=== PATIENT | female | born 1995 | race Caucasian/White ===

== ENCOUNTER 2019-05-15 20:36 | Emergency (ER) | payer MEDICAID, SELFPAY ==
[2019-05-15 20:44] VITALS: BP 143/98; PULSE 108; RESP 18; TEMP 36.6; O2SAT 99
--- NOTE | 2019-05-15 21:05 | DI.CT_ITS ---
SYMPTOM/DIAGNOSIS: TRAUMA, DIFFUSE BACK PAIN, LUQ PAIN CT CHEST, ABDOMEN AND PELVIS: Images were performed from clavicles through the ischial tuberosities after IV and without oral contrast. The heart and great vessels appear intact. There are no pleural or pericardial effusions or evidence of pneumothorax. No infiltrates are seen. No spine or rib fractures are identified. IMPRESSION: Negative chest CT CT ABDOMEN AND PELVIS: No spine or pelvic fractures are seen. There is no free air or free fluid. The liver shows fatty infiltration. The gallbladder, spleen, pancreas, adrenals and kidneys appear normal. There is some dehiscence of the rectus abdominis. There is a tiny fatty containing umbilical hernia. There is no bowel dilatation, free air or free fluid. An IUD is noted in the uterus. The ovaries are unremarkable. The bladder is nearly empty but appears intact. IMPRESSION: Negative CT chest, abdomen and pelvis.
--- NOTE | 2019-05-15 21:39 | ED.GENADUL_ITS ---
Discharge Plan Disposition Patient Disposition: HOME Condition: Improving Discharge Details Chief Complaint: Trauma Clinical Impression: Back pain due to injury, Abdominal pain due to injury Primary Care Provider: Loli Mckeon ED Provider: Silviano Schmitz Home Meds and New Rx's Prescriptions: New diclofenac potassium 50 mg tablet 50 mg PO TID PRN (Reason: pain) Qty: 10 RF: 0 No Action Mirena 20 mcg/24 hours (5 yrs) 52 mg Intrauterine Device INTRAUTERINE RF: 0 Discharge Instructions Instructions: Abdominal Pain (ED), Back Pain (ED) Additional Instructions: Return to the emergency department for any new or significant worsening of symptoms otherwise slowly advance her activity as tolerated by pain and disco mfort. If not improving over the next week please follow-up with your primary care provider for reassessment. Referrals: Loli Mckeon [Primary Care Provider] - (As needed for reassessment) Discharge Data Discharge Date/Time-TO BE ENTERED AT DEPARTURE: 05/15/19 23:47 Medical Decision Making Patient presenting the emergency department for chief complaint of back pain and abdominal pain. Patient reports yesterday she fell down a flight of stairs backwards and then when she went to sit up the couch she was attempting to carry with a friend was Let go and struck her in the abdomen. Since then she has had worsening pain, states episode of standing up and near syncope, nausea, and some retching due to pain. Patient states she has taken Tylenol and Motrin with no relief. Physical exam shows diffuse back pain without step-off deformity or ecchymosis noted, clear lung sounds, normal cardiac exam, abdomen with slight tenderness in the left upper quadrant otherwise soft no guarding. Given significant trauma and patient presenting 24 hours later with significant increase in pain I do feel that CT imaging is warranted. Neurological exam is on remarkable as I do not feel that head imaging is needed or warranted and patient denies any head injury. Patient is not so patient given ketorolac pending results. Review of labs shows a nonspecific leukocytosis, unremarkable CMP, and CT imaging shows no acute findings. Patient was reassessed and stated improvement after receiving ketorolac. Patient placed up on diclofenac and close return precautions were discussed. After discussion of diagnosis and plan of care patient has no further needs, questions, or concerns and states clear understanding to return to the emergency department for any worsening symptoms. HPI General Mode of arrival: ambulatory . Date/Time Provider Initiated Documentation: 05/15/19 20:54 . Limitations to Documentation: no limitations . Information obtained by: patient and RN notes reviewed . History of Present Illness 23 year old F presents to the emergency department with the chief complaint of Back pain, abdominal pain, trauma, described as moderate, with intensity rated at 8. Quality is described as sharp, and is localized to the back and abdomen. Patient started experiencing this day(s) (1) and it has been constant. No relieving factors improve symptom(s), Movement worsens symptoms . Patient notes no other symptoms.. Patient did receive the following treatments prior to arrival, NSAID Related Data Home Medications Medication Instructions Recorded Confirmed diclofenac potassium 50 mg PO TID PRN #10 tab 05/15/19 levonorgestrel [Mirena] INTRAUTERINE 05/15/19 Previous Rx's Medication Instructions Recorded diclofenac potassium 50 mg PO TID PRN #10 tab 05/15/19 Allergies Allergy/AdvReac Type Severity Reaction Status Date / Time latex Allergy Unverified 05/15/19 20:49 control pills AdvReac Mild Itching Uncoded 05/15/19 20:49 General Stated Complaint: Trauma KATIE: 3 Review of Systems Constitutional Denies fever(s) and Reports headache(s) ENT Reports headache(s) Cardiovascular Denies chest pain and Denies dyspnea Respiratory Denies cough, Reports pain on inspiration and Denies dyspnea Gastrointestinal Reports as per HPI, Reports abdominal pain, Denies melena, Denies change in bowel habits, Denies constipation, Denies diarrhea, Reports nausea and Reports vomiting Genitourinary Denies hematuria Musculoskeletal Reports back pain, Denies numbness, Reports stiffness and Denies tingling Integumentary/Breasts Denies rash Neurologic Reports headache(s), Denies memory loss, Denies numbness and Denies tingling Psychiatric Denies memory loss [facility] Medical History No acute medical problems (Acute) Social History Smoking/Tobacco Use Status: Current every day Tobacco Type: cigarettes Alcohol Intake: never Substance use type: does not use Do you feel safe at home: Yes Exam Const General: cooperative Orientation: alert, awake and oriented x3 Resp Effort & Inspection: normal respiratory effort and able to speak in complete sentences Auscultation: clear to auscultation bilaterally Cardio Rate: regular rate Rhythm: regular rhythm Heart Sounds: S1 normal and S2 normal GI Palpation: soft, no hepatosplenomegaly, not firm, no guarding, no masses, no pulsatile masses, not rigid, no splenomegaly and tender Auscultation: normal bowel sounds Back/Spine/Pelvis Thoracic/Lumbar Spine: paraspinal tenderness, thoracic spinal tenderness and lumbar spinal tenderness Neuro General: alert, awake, oriented x3, gait normal, tone normal, moves all extremities, normal light touch, pain and propioception, no focal motor deficits, CN's II-XI intact bilaterally and not confused Course Vital Signs Temperature 36.6 C 05/15/19 20:44 Pulse 108 H 05/15/19 20:44 Respiratory Rate 18 05/15/19 20:44 Blood Pressure 143/98 H 05/15/19 20:44 Pulse Oximetry 99 05/15/19 20:44 Temperature 36.6 C 05/15/19 20:44 Temperature Source Skin 05/15/19 20:44 Pulse 108 H 05/15/19 20:44 Respiratory Rate 18 05/15/19 20:44 Blood Pressure 143/98 H 05/15/19 20:44 Blood Pressure Position Sitting 05/15/19 20:44 Pulse Oximetry 99 05/15/19 20:44 Oxygen Delivery Method Room Air 05/15/19 20:44 Oxygen Flow Rate 0 05/15/19 20:44 Pain Level 8 05/15/19 20:44 Lab/Test Results Lab/Test Results: POC- Test(urine) Negative
[2019-05-15] MEDS: Ketorolac 30 MG/ML VIAL IVP (22:01)
[2019-05-15] MEDS: Ondansetron 4 MG/2 ML VIAL IVP (22:01)
[2019-05-15] MEDS: Omnipaque 350 MG/ML 100 ML BTL IJ (22:14)
[2019-05-15 22:15] LABS: Abs Immature Grans 0.06 k/cumm (0.0-0.09); Absolute Basophil Count 0.01 k/cumm (0.0-0.2); Absolute Eosinophil Count 0.24 k/cumm (0.0-0.7); Absolute Monocyte Count 0.79 k/cumm (0.11-0.7); Absolute Neutrophil Count 8.51 k/cumm (1.2-6.7); Basophils % 0.1; Eosinophils % 1.7; HCT 42.7 % (36.0-46.0); HGB 14.2 g/dL (12.0-15.5); Immature Grans % 0.4; Lymphocytes % 30.9; Mean Corp. HGB Concentration 33.3 g/dL (32.0-36.0); Mean Corpuscular Volume 96.2 fL (80-95); Mean Platelet Volume 10.7 fL (8.0-11.0); Monocytes % 5.7; Neutrophils % 61.2; Platelet Count 271 x1000/uL (130-400); RBC 4.44 m/cumm (4.00-5.20); RBC Distribution Width 13.2 % (11.7-14.6)
[2019-05-15] MEDS: Normal Saline 1,000 ML 1000 ML IV (22:19)
[2019-05-15 22:34] LABS: ALT 41 U/L (14-59); AST 25 U/L (15-37); Albumin 4.1 g/dL (3.4-5.0); Alkaline Phosphatase 65 U/L (46-116); Anion Gap 11.5 mmol/L (3-11); BUN 15 mg/dL (7-18); Bilirubin, Total 0.4 mg/dL (0.2-1.0); CO2 25.5 mmol/L (21.0-32.0); CREATININE 0.94 mg/dL (0.55-1.02); Chloride 103 mmol/L (98-107); Glucose 78 mg/dL (70-100); Lipase 122 U/L (73-393); Sodium 140 mmol/L (136-145); Total Protein 8.2 g/dL (6.4-8.2)
[2019-05-15 22:47] VITALS: BP 102/55; PULSE 88; RESP 16; O2SAT 99
--- NOTE | 2019-05-15 22:48 | DI.VRAD_ITS ---
EXAM: CT Chest With Contrast EXAM DATE/TIME: 05/15/2019 9:09 PM CLINICAL HISTORY: 23 years old, female; Injury or trauma; Fall; Initial encounter; Generalized; Blunt trauma (contusions or hematomas); Injury date: 05/14/2019; Injury details: Fell down stairs while helping to carry a couch. Landed supine, couch landed across the chest TECHNIQUE: Imaging protocol: Computed tomography of the chest with intravenous contrast. Radiation optimization: All CT scans at this facility use at least one of these dose optimization techniques: automated exposure control; mA and/or kV adjustment per patient size (includes targeted exams where dose is matched to clinical indication); or iterative reconstruction. COMPARISON: No relevant prior studies available. FINDINGS: Lungs: No consolidation. No masses. Pleural space: No pneumothorax. No pleural effusion. Heart: No cardiomegaly. No pericardial effusion. Aorta: No aortic aneurysm. Lymph nodes: Unremarkable. No enlarged lymph nodes. Bones/joints: Unremarkable. No acute fracture. Soft tissues: Unremarkable. IMPRESSION: No acute findings. EXAM: CT Abdomen and Pelvis With Contrast EXAM DATE/TIME: 05/15/2019 9:09 PM CLINICAL HISTORY: 23 years old, female; Injury or trauma; Fall; Initial encounter; Generalized; Blunt trauma (contusions or hematomas); Injury date: 05/14/2019; Injury details: Fell down stairs while helping to carry a couch. Landed supine, couch landed across the chest TECHNIQUE: Imaging protocol: Computed tomography of the abdomen and pelvis with intravenous contrast. Radiation optimization: All CT scans at this facility use at least one of these dose optimization techniques: automated exposure control; mA and/or kV adjustment per patient size (includes targeted exams where dose is matched to clinical indication); or iterative reconstruction. Contrast material: [id number]; Contrast volume: 100 ml; Contrast route: IV RT HAND 20G; COMPARISON: No relevant prior studies available. FINDINGS: Liver: Unremarkable. No mass. Gallbladder and bile ducts: No calcified stones. No ductal dilation. Pancreas: Unremarkable. No ductal dilation. Spleen: Unremarkable. No splenomegaly. Adrenals: Unremarkable. No mass. Kidneys and ureters: Unremarkable. No hydronephrosis. Stomach and bowel: Unremarkable. No obstruction. No mucosal thickening. Appendix: No evidence of appendicitis. Intraperitoneal space: No free air. No significant fluid collection. Vasculature: No abdominal aortic aneurysm. Lymph nodes: No enlarged lymph nodes. Bladder: Unremarkable as visualized. Reproductive: IUD in place. Bones/joints: No acute fracture. No dislocation. Soft tissues: Unremarkable. IMPRESSION: No acute findings. Dictated and Authenticated by: Bro Veloz MD. Ordering:PAUL Shore MD
[2019-05-15 23:48] VITALS: BP 112/76; PULSE 92; RESP 16; TEMP 36.6; O2SAT 98
== END 2019-05-15 23:47 | disposition home or self-care (01) ==
PROVIDERS: Emergency Provider Nurse Practitioner Family; PCP Nurse Practitioner Family
DX: M54.9 Dorsalgia, unspecified (principal); R10.9 Unspecified abdominal pain; W10.8XXA Fall (on) (from) other stairs and steps, initial encounter
CPT/HCPCS: 36415; 74177; 80053; 81025; 83690; 96361; 96374; 96375; 99285; 71260; 85025; 99284

== ENCOUNTER 2019-10-21 15:12 | Outpatient (REF) | payer MEDICAID, SELFPAY ==
--- NOTE | 2019-10-21 13:45 | PAPFT_PTH ---
PATIENT: Terri Dick LOC: [facility] U#:[id number] AGE/SX: 24/F ROOM: RE10/21/[address]: Loli Mckeon : 1995 BED: DIS: 10/21/2019 SPEC #: [id number] RECD: 10/21/19 17:54 STATUS: MANOHAR REQ #: [id number] STEVEN: 10/21/19 13:[address]: Loli Mckeon [facility]PT[facility] Cytology RECD BY: Elyse Pickens Tissues: 1 - CX/ENDOCX FOR PAP SMEARS Procedures: PAP THIN PREP/[facility] Screening Comments: [id number]
[2019-10-21 19:52] LABS: HCT 43.7 % (36.0-46.0); HGB 14.3 g/dL (12.0-15.5); Mean Corp. HGB Concentration 32.7 g/dL (32.0-36.0); Mean Corpuscular Hemoglobin 31.4 pg (27.0-33.0); Mean Corpuscular Volume 95.8 fL (80-95); Platelet Count 240 x1000/uL (130-400); RBC 4.56 m/cumm (4.00-5.20); RBC Distribution Width 13.3 % (11.7-14.6); White Blood Cell Count 14.71 k/cumm (4.4-10.8)
[2019-10-21 20:02] LABS: Iron 46 ug/dL (50-170); Total Iron Binding Capacity 342 ug/dL (250-450); Transferrin Sat 13 % (15-50)
[2019-10-21 20:12] LABS: ALT 34 U/L (14-59); AST 18 U/L (15-37); Albumin 4.3 g/dL (3.4-5.0); Alkaline Phosphatase 76 U/L (46-116); Anion Gap 9.5 mmol/L (3-11); BUN 9 mg/dL (7-18); Bilirubin, Total 0.2 mg/dL (0.2-1.0); CO2 27.5 mmol/L (21.0-32.0); Chloride 102 mmol/L (98-107); Glucose 85 mg/dL (74-106); Sodium 139 mmol/L (136-145); TSH (W/Ref FT4) 1.08 uIU/mL (0.36-3.74); Total Protein 7.7 g/dL (6.4-8.2)
[2019-10-21 20:15] LABS: Bilirubin Negative (Negative); Blood Negative (Negative); Clarity Clear (Clear); Glucose Negative (Negative); Ketones Negative (Negative); Leukocyte Esterase Trace (Negative); Nitrite Negative (Negative); Specific Gravity 1.015 (1.005-1.025); Urobilinogen 0.2 EU/dL (Up TO 0.2)
[2019-10-21 21:11] LABS: Bacteria Rare HPF (Negative); Epithelial Cells Moderate HPF (Negative)
[2019-10-21 21:12] LABS: C & S Indicated? No/Sq. Contamination
[2019-10-23 10:51] LABS: HIV-1/2 Ag & Ab Screen Negative (Negative); Hepatitis C Ab w Rflx HCV PCR Negative (Negative)
[2019-10-23 15:18] LABS: Chlamydia Result Negative (Negative); GC Result Negative (Negative)
== END 2019-10-21 15:32 ==
LOC: NCHCN 15:12
PROVIDERS: PCP Nurse Practitioner Family; Visit Provider Nurse Practitioner Family
DX: R10.30 Lower abdominal pain, unspecified (principal); N89.8 Other specified noninflammatory disorders of vagina; Z20.2 Contact with and (suspected) exposure to infections with a predominantly sexual mode of transmission; Z11.3 Encounter for screening for infections with a predominantly sexual mode of transmission; Z11.59 Encounter for screening for other viral diseases; Z12.4 Encounter for screening for malignant neoplasm of cervix; Z11.4 Encounter for screening for human immunodeficiency virus [HIV]
CPT/HCPCS: 80053; 85027; 86803; 87389; 87491; 87591; 88142; 81003; 81015; 83540; 83550; 84443; 87480; 87510; 87660

== ENCOUNTER 2019-11-04 11:50 | Outpatient (REF) | payer MEDICAID, SELFPAY | END 2019-11-04 12:10 | LOC: NCHCN 11:50 | PROVIDERS: PCP Nurse Practitioner Family; Visit Provider Nurse Practitioner Family | DX: R69 Illness, unspecified (principal) | CPT/HCPCS: 81003 ==

== ENCOUNTER 2019-11-05 01:43 | Emergency (ER) | payer MEDICAID, SELFPAY ==
--- NOTE | 2019-11-05 01:43 | W.ED.GENAD ---
Discharge Plan Disposition Patient Disposition: HOME Condition: Improving Discharge Details Chief Complaint: GenMedical Clinical Impression: Dizziness, History of anxiety, Generalized pain Primary Care Provider: Loli Mckeon ED Provider: Sylvia Marinelli Home Meds and New Rx's Prescriptions: Continued Mirena 20 mcg/24 hours (5 yrs) 52 mg Intrauterine Device INTRAUTERINE RF: 0 diclofenac potassium 50 mg tablet 50 mg PO TID PRN (Reason: pain) Qty: 10 RF: 0 Discharge Instructions Instructions: Chest Pain (ED), Dizziness (ED) Additional Instructions: Drink plenty of fluids and get plenty of rest. Alternate tylenol and motrin as needed and directed for pain. Follow-up with your primary care doctor in 1 week. Return to the emergency department with any worsening or new concerning symptoms. Discharge Data Discharge Date/Time-TO BE ENTERED AT DEPARTURE: 11/05/19 03:25 Discharge Physician: Sylvia Marinelli Medical Decision Making 0150 -- 24-year-old female with a history of anxiety, bipolar disorder, PTSD, previous opioid abuse, anemia presents for episode of chest pain, dizziness and generalized weakness that occurred within the hour. EMS was called to the residence for possible anxiety versus seizure. Patient has no history of seizures and states she was awake during this entire episode and denies any jerking or seizure activity or LOC. She was awake and alert upon their arrival and was able to ambulate to the stretcher. She states she finished intercourse with her boyfriend when she stood up and went to the bathroom. Upon return she complained of anterior chest pain, dizziness and generalized weakness. She states she felt like she was frozen like in a coma and was unable to see or talk and this lasted approximately few minutes and then improved. She does currently admit to headache and intermittent chest pain and generalized weakness. She denies any drug or alcohol use. She states she does have a Mirena but that she also took a test today at home which was positive. She states she saw her PCP last week and was told she was possibly anemic and advised to start iron. Vitals within normal limits. Patient appears relaxed and comfortable and in no acute distress. She has a history of a murmur which is heard faintly on exam, 2/6. No focal deficits. Differential diagnosis includes dehydration, anxiety attack, anemia, electrolyte abnormality, arrhythmia. History and presentation not consistent with PE or seizure. PERC negative. Urine test negative. Will place an IV, bolus IV fluids, screening labs, urinalysis, UDS, chest x-ray and EKG. No focal deficits and do not see an indication for ct head. 0300 -- labs and imaging reviewed and unremarkable. Pt admitted to diffuse body pain and was given a dose of toradol and symptoms improved. Suspect possibly dehydration vs viral process. She is requesting to go home. Advised to follow up with the primary care doctor for re-evaluation. Usual and customary return precautions given prior to discharge. Medical Records Medical records reviewed: Yes I reviewed the patient's medical records. Imaging Data Radiologic Study: Radiologist's impression: XR Chest, 2 Views Exam date and time: 11/05/2019 2:31 AM Age: 24 years old Clinical indication: Other: Dizziness; Type not specified; Patient HX: Chest pain, dizzy, R/O acute disease TECHNIQUE: Imaging protocol: XR of the chest Views: 2 views. COMPARISON: No relevant prior studies available. FINDINGS: Lungs: The lungs are clear throughout with no mass or consolidation seen. Pleural space: Pleural margins are sharply defined and there is no pneumothorax or pleural effusion. Heart/Mediastinum: Heart size is normal and vessel margins are sharply defined. Bones/joints: Osseous structures appear grossly intact. IMPRESSION: No acute cardiopulmonary process. Lab Data Lab results reviewed: Yes I reviewed the patient's lab results. Labs: Laboratory Tests Range/Units 11/05/19 11/05/19 02:20 02:20 WBC (4.4-10.8) k/cumm 12.34 H RBC (4.00-5.20) m/cumm 4.30 Hgb (12.0-15.5) g/dL 13.6 Hct (36.0-46.0) % 40.7 MCV (80-95) fL 94.7 MCH (27.0-33.0) pg 31.6 MCHC (32.0-36.0) g/dL 33.4 RDW (11.7-14.6) % 13.2 Plt Count (130-400) x1000/uL 247 MPV (8.0-11.0) fL 11.1 H Immature Gran % % 0.2 Neutrophils % 53.3 Lymphocytes % 36.1 Monocytes % 7.3 Eosinophils % 2.9 Basophils % 0.2 Absolute Neutrophils (1.2-6.7) k/cumm 6.58 Absolute Lymphocytes (1.2-3.4) k/cumm 4.45 H Absolute Monocytes (0.11-0.7) k/cumm 0.90 H Absolute Eosinophils (0.0-0.7) k/cumm 0.36 Absolute Basophils (0.0-0.2) k/cumm 0.02 Sodium (136-145) mmol/L 141 Potassium (3.5-5.1) mmol/L 4.2 Chloride (98-107) mmol/L 105 Carbon Dioxide (21.0-32.0) mmol/L 24.9 Anion Gap (3-11) mmol/L 11.1 H BUN (7-18) mg/dL 10 Creatinine (0.55-1.02) mg/dL 0.72 Estimated GFR/1.73 m2 (mL/min/1.73m2) >= 60.00 Glucose (74-106) mg/dL 91 Calcium (8.5-10.1) mg/dL 9.3 Magnesium (1.8-2.4) mg/dL 2.0 Total Bilirubin (0.2-1.0) mg/dL 0.3 AST (15-37) U/L 30 ALT (14-59) U/L 41 Alkaline Phosphatase (46-116) U/L 61 Troponin I (<0.06) ng/Ml < 0.05 Total Protein (6.4-8.2) g/dL 7.2 Albumin (3.4-5.0) g/dL 4.0 ECG Data Attestation: I personally reviewed and interpreted this ECG (s) as follows: Interpretation: rate of 78, sinus, no acute ST elevation or depression. KS 154. QTc 417. QRS 94. HPI General Mode of arrival: EMS. Date/Time Provider Initiated Documentation: 11/05/19 01:44. Limitations to Documentation: no limitations. Information obtained by: patient and EMS. History of Present Illness 24 year old F presents to the emergency department with the chief complaint of chest pain, period of dizziness, weakness, Quality is described as aching, and is localized to the chest. Patient reports no radiation. Patient started experiencing this hour(s) (1) and it has been other (improved). No relieving factors improve symptom(s), No exacerbating factors reported . Patient notes chest pain, headaches and weakness; denies fever/chills, loss of appetite, malaise, nausea/vomiting, rash, seizure, shortness of breath and syncope. Patient did receive the following treatments prior to arrival, none Related Data Home Medications Medication Instructions Recorded Confirmed Mirena INTRAUTERINE 05/15/19 diclofenac potassium 50 mg PO TID PRN #10 tab 05/15/19 Previous Rx's Medication Instructions Recorded diclofenac potassium 50 mg PO TID PRN #10 tab 05/15/19 Allergies Allergy/AdvReac Type Severity Reaction Status Date / Time latex Allergy Unverified 05/15/19 20:49 control pills AdvReac Mild Itching Uncoded 05/15/19 20:49 General KATIE: 3 Review of Systems All systems reviewed & are unremarkable except as noted in HPI and below Constitutional Constitutional: Reports as per HPI, Denies chills and Denies fever(s) Eyes Eyes: Denies blurry vision ENT Ears, Nose, Mouth, and Throat: Reports dizziness, Denies sore throat and Denies throat swelling Cardiovascular Cardiovascular: Reports chest pain and Denies dyspnea Respiratory Respiratory: Denies cough and Denies dyspnea Gastrointestinal Gastrointestinal: Denies abdominal pain, Denies diarrhea and Denies vomiting Genitourinary Genitourinary: Denies hematuria and Denies dysuria Musculoskeletal Musculoskeletal: Denies back pain and Denies numbness Integumentary/Breasts Skin/Breast: Denies lesions and Denies rash Neurologic Neurologic: Reports dizziness, Denies focal weakness and Denies numbness Allergic/Immunologic Allergic/Immunologic: Denies throat swelling [facility] Medical History (Updated 11/05/19 @ 03:17 by Sylvia Marinelli DO) Anxiety (Chronic) Bipolar affective disorder (Acute) Opioid abuse (Acute) PTSD (post-traumatic stress disorder) (Acute) Social History Smoking/Tobacco Use Status: Current every day Tobacco Type: cigarettes Alcohol Intake: never Substance use type: does not use Do you feel safe at home: Yes Do you feel safe in your relationship?: Yes Exam Const General: cooperative and no acute distress Orientation: alert, awake and oriented x3 HENMT Head: normal to inspection Ears: hearing grossly normal bilaterally and external ears normal General nose exam: external nose normal Face and sinus: normal facial exam Mouth: oral mucosae normal Teeth and gingiva: dentition normal Throat: posterior oropharynx normal Eyes General: appearance normal, both eyes and all related structures Eyelids: eyelids normal Pupils: PERRL EOM: EOM intact bilaterally Neck Neck: normal visual inspection Lymphatic: no lymphadenopathy noted Chest Chest: normal inspection of the chest Resp Effort & Inspection: normal respiratory effort and able to speak in complete sentences Auscultation: clear to auscultation bilaterally Cardio Rate: regular rate Rhythm: regular rhythm GI Inspection: normal to inspection Palpation: soft, not firm, no guarding, no hepatosplenomegaly, no masses and nontender Auscultation: normal bowel sounds Skin General skin exam: no rashes or lesions noted Neuro General: alert, awake, oriented x3 and gait normal Cranial Nerves: CN's II-XI intact bilaterally Cognition: normal cognition Speech: speech normal Gait: normal gait Motor: muscle tone normal throughout and strength 5/5 throughout Sensory Exam: no sensory deficits noted Extrem General: normal to inspection, full ROM and normal capillary refill Psych Appearance: grossly normal Mental Status: mental status grossly normal Speech and Movement: speech and movement normal Affect: normal affect Thought Process: normal
[2019-11-05 01:49] VITALS: BP 133/78; PULSE 84; RESP 16; TEMP 36.2; O2SAT 98
[2019-11-05] MEDS: Normal Saline 1,000 ML 1000 ML IV (02:20)
[2019-11-05 02:24] VITALS: RESP 18
[2019-11-05 02:31] LABS: Abs Immature Grans 0.02 k/cumm (0.0-0.09); Absolute Eosinophil Count 0.36 k/cumm (0.0-0.7); Absolute Lymphocyte Count 4.45 k/cumm (1.2-3.4); Absolute Neutrophil Count 6.58 k/cumm (1.2-6.7); Basophils % 0.2; Eosinophils % 2.9; HCT 40.7 % (36.0-46.0); HGB 13.6 g/dL (12.0-15.5); Immature Grans % 0.2 %; Lymphocytes % 36.1; Mean Corp. HGB Concentration 33.4 g/dL (32.0-36.0); Mean Corpuscular Hemoglobin 31.6 pg (27.0-33.0); Mean Corpuscular Volume 94.7 fL (80-95); Mean Platelet Volume 11.1 fL (8.0-11.0); Monocytes % 7.3; Neutrophils % 53.3; Platelet Count 247 x1000/uL (130-400); RBC Distribution Width 13.2 % (11.7-14.6); White Blood Cell Count 12.34 k/cumm (4.4-10.8)
[2019-11-05 02:34] LABS: Absolute Basophil Count 0.02 k/cumm (0.0-0.2)
--- NOTE | 2019-11-05 02:35 | DI.RAD_ITS ---
EXAM: XR CHEST 2V PA LATERAL CLINICAL HISTORY: chest pain, dizzy, r/o acute disease. TECHNIQUE: 2D digital imaging was performed. COMPARISON: No exams were available for comparison FINDINGS: LUNGS: Clear. No pleural abnormality seen. HEART: Normal. MEDIASTINUM: Normal. OTHER FINDINGS:Normal. BONE:Normal. IMPRESSION: No acute pulmonary findings.
[2019-11-05 02:47] LABS: ALT 41 U/L (14-59); AST 30 U/L (15-37); Alkaline Phosphatase 61 U/L (46-116); Anion Gap 11.1 mmol/L (3-11); BUN 10 mg/dL (7-18); Bilirubin, Total 0.3 mg/dL (0.2-1.0); CO2 24.9 mmol/L (21.0-32.0); CREATININE 0.72 mg/dL (0.55-1.02); Calcium 9.3 mg/dL (8.5-10.1); Chloride 105 mmol/L (98-107); Glucose 91 mg/dL (74-106); Potassium 4.2 mmol/L (3.5-5.1); Sodium 141 mmol/L (136-145); Total Protein 7.2 g/dL (6.4-8.2); Troponin I < 0.05 ng/Ml (<0.06)
--- NOTE | 2019-11-05 02:49 | DI.VRAD_ITS ---
PROCEDURE INFORMATION: Exam: XR Chest, 2 Views Exam date and time: 11/05/2019 2:31 AM Age: 24 years old Clinical indication: Other: Dizziness; Type not specified; Patient HX: Chest pain, dizzy, R/O acute disease TECHNIQUE: Imaging protocol: XR of the chest Views: 2 views. COMPARISON: No relevant prior studies available. FINDINGS: Lungs: The lungs are clear throughout with no mass or consolidation seen. Pleural space: Pleural margins are sharply defined and there is no pneumothorax or pleural effusion. Heart/Mediastinum: Heart size is normal and vessel margins are sharply defined. Bones/joints: Osseous structures appear grossly intact. IMPRESSION: No acute cardiopulmonary process. Dictated and Authenticated by: Estrada Mchugh MD. Ordering:AYESHA Ward MD
[2019-11-05] MEDS: Ketorolac 30 MG/ML VIAL IVP (03:20)
[2019-11-05 03:25] VITALS: BP 123/70; PULSE 84; RESP 18; TEMP 36.6; O2SAT 98
== END 2019-11-05 03:25 | disposition home or self-care (01) ==
LOC: ER 03:31
PROVIDERS: Emergency Provider Physician Assistant; PCP Nurse Practitioner Family
DX: R42 Dizziness and giddiness (principal); F41.9 Anxiety disorder, unspecified; R53.1 Weakness; R52 Pain, unspecified; F31.9 Bipolar disorder, unspecified
CPT/HCPCS: 36415; 80053; 93005; 96361; 96374; 99285; 71046; 83735; 84484; 85025; 93010; J1885

== ENCOUNTER 2019-12-24 17:25 | Emergency (ER) | payer MEDICAID, SELFPAY ==
[2019-12-24 17:29] VITALS: BP 140/96; PULSE 87; RESP 14; TEMP 36.5; O2SAT 98
--- NOTE | 2019-12-24 17:43 | ED.GENADUL_ITS ---
Discharge Plan Disposition Patient Disposition: HOME Condition: Stable Discharge Details Chief Complaint: DentalOral Clinical Impression: Odontalgia Primary Care Provider: Loli Mckeon ED Provider: Jose Rodarte Home Meds and New Rx's Prescriptions: New penicillin V potassium 500 mg tablet 500 mg PO QID 10 Days Qty: 40 RF: 0 Continued Mirena 20 mcg/24 hours (5 yrs) 52 mg Intrauterine Device INTRAUTERINE RF: 0 No Action penicillin V potassium 500 mg tablet 500 mg PO BID RF: 0 Discharge Instructions Instructions: Toothache (ED) Additional Instructions: May use warm salt water gargles to decrease discomfort. Tylenol and/or ibuprofen as needed for pain. Please change your penicillin schedule to 500 mg by mouth 4 times daily for 10 days. Follow-up with dentistry as planned. He may also call the [facility] in [place] who has a large group of dentist. Their office number is [phone] Return to the ER for any acute concerns. Medical Decision Making 24-year-old female with poor dentition, numerous dental caries and broken teeth. Presents with day 3 of left mandibular facial swelling and tooth pain. No obvious focal point of fluctuance but she clearly is developing a recurrent dental infection. She was placed on twice daily penicillin yesterday by her primary care physician. Patient was consented and agreed to regional nerve block of the inferior alveolar nerve which I performed with a one-to-one mix of bupivacaine and lidocaine. I will increase her penicillin to 500 mg 4 times daily and she will continue with her plan to follow-up with dentistry. She understands homecare as well as return precautions. HPI General Mode of arrival: ambulatory . Date/Time Provider Initiated Documentation: 12/24/19 17:29 . Limitations to Documentation: no limitations . Information obtained by: patient . History of Present Illness 24 year old F presents to the emergency department with the chief complaint of Left facial swelling and dental pain, described as moderate and similar to prior episodes, Quality is described as constant, and is localized to the face and mouth. Patient reports no radiation. Patient started experiencing this day(s) and it has been constant. No relieving factors improve symptom(s), Eating worsens symptoms . Patient notes no other symptoms. and other (No change to voice or drooling); denies fever/chills. Patient did receive the following treatments prior to arrival, other (Started on penicillin yesterday per primary care twice daily for 10 days) Related Data Home Medications Medication Instructions Recorded Confirmed Mirena INTRAUTERINE 05/15/19 penicillin V potassium 500 mg PO BID 12/24/19 12/24/19 penicillin V potassium 500 mg PO QID 10 Days #40 tab 12/24/19 Previous Rx's Medication Instructions Recorded penicillin V potassium 500 mg PO QID 10 Days #40 tab 12/24/19 Allergies Allergy/AdvReac Type Severity Reaction Status Date / Time latex Allergy Unverified 12/24/19 17:32 control pills AdvReac Mild Itching Uncoded 12/24/19 17:32 General Stated Complaint: DentalOral KATIE: 4 Review of Systems Narrative: See HPI 6 systems reviewed and otherwise negative [facility] Medical History (Updated 12/24/19 @ 17:46 by Jose Rodarte MD) Anxiety (Chronic) Bipolar affective disorder (Acute) Opioid abuse (Acute) PTSD (post-traumatic stress disorder) (Acute) Social History Smoking/Tobacco Use Status: Current every day Tobacco Type: cigarettes Alcohol Intake: never Drug use: Daily Substance use type: marijuana Details: marijuana at HS Do you feel safe at home: Yes Do you feel safe in your relationship?: Yes Exam Narrative Exam Narrative: GEN: awake, alert, oriented 3. Pleasant, well groomed, interactive. HEAD: Normocephalic, atraumatic ENT: Mucous membranes moist, oropharynx with numerous dental caries and broken teeth. There is mild tenderness to the left mandibular buccal aspect without pointing fluctuance. External ear exam unremarkable EYES: PERRL, EOMI NECK: Full ROM, no GENARO, no menigismus EXT: Full ROM, no edema, no rash Neuro: Grossly normal neurologic exam, conversant, interactive. Psych: Speech fluent, thoughts congruent, affect normal Course Vital Signs Vital signs: Vital Signs Temperature 36.5 C 12/24/19 17:29 Pulse 87 12/24/19 17:29 Respiratory Rate 14 12/24/19 17:29 Blood Pressure 140/96 H 12/24/19 17:29 Pulse Oximetry 98 12/24/19 17:29 Temperature 36.5 C 12/24/19 17:29 Temperature Source Skin 12/24/19 17:29 Pulse 87 12/24/19 17:29 Respiratory Rate 14 12/24/19 17:29 Respiratory Effort 12/24/19 17:33 Blood Pressure 140/96 H 12/24/19 17:29 Blood Pressure Position Sitting 12/24/19 17:29 Pulse Oximetry 98 12/24/19 17:29 Oxygen Delivery Method Room Air 12/24/19 17:29 Oxygen Flow Rate 0 12/24/19 17:29 Pain Level 10 12/24/19 17:33 Comment 12/24/19 17:29 Procedures Nerve Block Nerve Block 1: Time out performed: Yes Local Anesthetic: Lidocaine 1% and Bupivicaine 0.25% Intraoral Nerve Block: inferior alveolar Procedure Successful: Yes Patient Tolerated Procedure: well
[2019-12-24] MEDS: Bupivacaine 0.5% Pres-Free 30 ML VIAL IJ (18:03)
== END 2019-12-24 18:10 | disposition home or self-care (01) ==
PROVIDERS: Emergency Provider Emergency Medicine; PCP Nurse Practitioner Family
DX: R68.84 Jaw pain; K02.9 Dental caries, unspecified
CPT/HCPCS: 64450; 99283

== ENCOUNTER 2020-01-14 16:53 | Emergency (ER) | payer MEDICAID, SELFPAY ==
[2020-01-14 16:58] VITALS: BP 128/90; PULSE 93; RESP 18; TEMP 36.5; O2SAT 95
--- NOTE | 2020-01-14 17:02 | ED.GENADUL_ITS ---
Discharge Plan Disposition Patient Disposition: HOME Condition: Good Discharge Details Chief Complaint: RashLesion Clinical Impression: Skin irritation Primary Care Provider: Loli Mckeon ED Provider: Elgin Gastelum Home Meds and New Rx's Prescriptions: No Action Mirena 20 mcg/24 hours (5 yrs) 52 mg Intrauterine Device INTRAUTERINE RF: 0 Discharge Instructions Instructions: Cellulitis (DC) Additional Instructions: At this time you have mild irritation of your skin likely initially from scratching, and there is no very mild infection in this area. It does not need any oral antibiotics. Please apply either triple antibiotic ointment/neomycin ointment/bacitracin ointment to the affected lesions, place a Band-Aid over these so that they healed and that there is no more scratching. If you notice spreading of the redness, discharge or worsening of your symptoms please return immediately for reassessment. If you notice any worsening of your symptoms, or any new symptoms such as vomiting, diarrhea, fever, chills, shortness of breath, chest pain, numbness, weakness, or fainting , please return immediately to the emergency department for reevaluation. Please follow up with your primary care provider as soon as possible for reassessment and reevaluation. As always, it was a pleasure participating in your medical care today. Referrals: oLli Mckeon [Primary Care Provider] - Discharge Data Discharge Date/Time-TO BE ENTERED AT DEPARTURE: 01/14/20 17:05 Medical Decision Making 24-year-old female with no significant past medical history who presents today for evaluation of 2 lesions. Patient states that few days ago she developed mild what she thought was a bite angi on her right neck and left hip. She did some significant scratching shortly after that and then developed mild redness after that. She states that the areas are slightly tender, she denies any discharge, fever chills or other complaints. She denies any new pets, she does have a rabbit. She denies history of bedbugs or fleas. She has no other complaints at this time. She denies history of shingles or herpes. No other modifying factors. Physical exam demonstrates 2 small lesions, one on her neck and one on her hip. Both lesions appear to have very minimal cellulitis, no evidence of abscess or other abnormality, no current clinical indication for oral antibiotic therapy. Recommend that the patient stop scratching the areas, and apply triple antibiotic ointment. Discussed red flags for which to return. I have extensively reviewed the treatment plan and discharge instructions with the patient. I have addressed all patient concerns at this time. The patient was made aware of what symptoms to monitor for that would warrant a return to the emergency department. Discussed the plan with the patient, they demonstrate verbal understanding and agreement with our assessment and plan at this time. HPI General Date/Time Provider Initiated Documentation: 01/14/20 16:54 . HPI Narrative: 24-year-old female with no significant past medical history who presents today for evaluation of 2 lesions. Patient states that few days ago she developed mild what she thought was a bite angi on her right neck and left hip. She did some significant scratching shortly after that and then developed mild redness after that. She states that the areas are slightly tender, she denies any discharge, fever chills or other complaints. She denies any new pets, she does have a rabbit. She denies history of bedbugs or fleas. She has no other complaints at this time. She denies history of shingles or herpes. No other modifying factors. Related Data Home Medications Medication Instructions Recorded Confirmed Mirena INTRAUTERINE 05/15/19 Allergies Allergy/AdvReac Type Severity Reaction Status Date / Time latex Allergy Unverified 12/24/19 17:32 control pills AdvReac Mild Itching Uncoded 12/24/19 17:32 General Stated Complaint: RashLesion KATIE: 5 Review of Systems All systems reviewed & are unremarkable except as noted in HPI and below [facility] Medical History (Updated 01/14/20 @ 17:04 by Elgin Gastelum DO) Anxiety (Chronic) Bipolar affective disorder (Acute) Opioid abuse (Acute) PTSD (post-traumatic stress disorder) (Acute) Social History Smoking/Tobacco Use Status: Current every day Tobacco Type: cigarettes Alcohol Intake: never Drug use: Daily Substance use type: marijuana Details: marijuana at HS Do you feel safe at home: Yes Do you feel safe in your relationship?: Yes Exam Narrative Exam Narrative: 1.Const: Well-nourished, Well-developed, appearing stated age 2.Eyes: PERRL, no conjunctival injection, and symmetrical lids. 3.ENT: Atraumatic external nose and ears. Moist MM. Neck: Symmetric, trachea midline, No thyromegaly. 4.CVS: +S1/S2, No murmurs or gallops. Peripheral pulses 2+ and equal in all extremities. Brisk capillary refill in all extremities. 5.RESP: Unlabored respiratory effort. Clear to auscultation bilaterally. No wheezes rales or rhonchi 6.GI: Soft, Nontender/Nondistended, No hepatosplenomegaly. No guarding or rebound. 7.MSK: Normocephalic/Atraumatic, Extremities w/o deformity or ttp No cyanosis or clubbing, Normal movement of all extremities 8.Skin: Warm, Dry. Patient has small erythematous lesion with mild excoriations over her right neck, no abscess, swelling, or drainage. No pustules. Patient's left hip also demonstrates a small lesion and similar appearance. Diameter is roughly 2 cm. Width is 1 cm. Negative Nikolsky sign. No large vesicles or bulla. No palpable purpura. No oral lesions. No mucosal lesions. No evidence of severe cellulitis. No evidence of vaccine preventable rash. 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 Sensation grossly intact, no focal neurologic deficits. 10.Psych: (AAO) x3. Appropriate mood and affect Course Vital Signs Vital signs: Vital Signs Temperature 36.5 C 01/14/20 16:58 Pulse 93 H 01/14/20 16:58 Respiratory Rate 18 01/14/20 16:58 Blood Pressure 128/90 01/14/20 16:58 Pulse Oximetry 95 01/14/20 16:58 Temperature 36.5 C 01/14/20 16:58 Temperature Source Skin 01/14/20 16:58 Pulse 93 H 01/14/20 16:58 Respiratory Rate 18 01/14/20 16:58 Blood Pressure 128/90 01/14/20 16:58 Blood Pressure Position Sitting 01/14/20 16:58 Pulse Oximetry 95 01/14/20 16:58 Oxygen Delivery Method Room Air 01/14/20 16:58 Oxygen Flow Rate 0 01/14/20 16:58
== END 2020-01-14 17:05 | disposition home or self-care (01) ==
PROVIDERS: Emergency Provider Student in an Organized Health Care Education/Training Program; PCP Nurse Practitioner Family
DX: R21 Rash and other nonspecific skin eruption (principal)
CPT/HCPCS: 99282

== ENCOUNTER 2020-04-15 19:55 | Emergency (ER) | payer MEDICAID, SELFPAY ==
[2020-04-15 19:59] VITALS: BP 121/67; PULSE 85; RESP 18; TEMP 37; O2SAT 99
--- NOTE | 2020-04-15 20:23 | W.ED.GENAD ---
Discharge Plan Disposition Patient Disposition: HOME Condition: Good Discharge Details Chief Complaint: DentalOral Clinical Impression: Pain, dental Primary Care Provider: Loli Mckeon ED Provider: Elgin Gastelum Home Meds and New Rx's Prescriptions: Continued Mirena 20 mcg/24 hours (5 yrs) 52 mg Intrauterine Device INTRAUTERINE RF: 0 Discharge Instructions Instructions: Toothache (ED) Additional Instructions: At this time please continue your antibiotic that you are prescribed by your dentist. Take 800 mg of ibuprofen every 6 hours and 1000 mg of Tylenol every 6 hours. If you need something extra for the breakthrough pain you can take 1 Gordon pill every 6 hours, but I would recommend trying to avoid this if at all possible. If you do take the Gordon pill only take 500 mg of Tylenol instead of 1000 as Gordon does have a small amount of Tylenol in it. Continue to ice your jaw as often as possible. Follow-up closely with your dentist. If you notice any worsening of your symptoms, or any new symptoms such as vomiting, diarrhea, fever, chills, shortness of breath, chest pain, numbness, weakness, or fainting , please return immediately to the emergency department for reevaluation. Please follow up with your primary care provider as soon as possible for reassessment and reevaluation. As always, it was a pleasure participating in your medical care today. Referrals: Loli Mckeon [Primary Care Provider] - Medical Decision Making 24-year-old female who presents today for evaluation of dental pain. The patient had all but 6 teeth pulled 2 days ago. She was given an antibiotic which she suspects is amoxicillin, recommended Tylenol Motrin and a few Gordon's. Unfortunately she finished her narcotic pills today and still has notable pain. She states that she contacted her PCP, they recommended that she come in here for further evaluation. Exam demonstrates a nearly edentulous oropharynx, no signs of significant swelling edema or discharge. With the notable amount of teeth that were removed I see it is no surprise that she has notable pain that she does. We will maximize her Tylenol and Motrin dosing, I did discuss risks and benefits of narcotics. Through shared decision making process we will give 4 Gordon pills for home use. Recommend close follow-up with PCP. As well as dentist. With no signs of infection, evidence of trauma, or drainage, I see no other further and medical indication for treatment. Patient will be discharged home. Discussed red flags which to return. I have extensively reviewed the treatment plan and discharge instructions with the patient. I have addressed all patient concerns at this time. The patient was made aware of what symptoms to monitor for that would warrant a return to the emergency department. Discussed the plan with the patient, they demonstrate verbal understanding and agreement with our assessment and plan at this time. HPI General Date/Time Provider Initiated Documentation: 04/15/20 20:12. HPI Narrative: 24-year-old female who presents today for evaluation of dental pain. The patient had all but 6 teeth pulled 2 days ago. She was given an antibiotic which she suspects is amoxicillin, recommended Tylenol Motrin and a few Gordon's. Unfortunately she finished her narcotic pills today and still has notable pain. She states that she contacted her PCP, they recommended that she come in here for further evaluation. She currently denies any fever chills chest pain shortness of breath numbness tingling or weakness. No other complaints at this time. She is intermittently taking Tylenol Motrin, usually at lower doses of 600 mg for ibuprofen and 500 mg for Tylenol. No other complaints at this time. No other modifying factors. Related Data Home Medications Medication Instructions Recorded Confirmed Mirena INTRAUTERINE 05/15/19 Allergies Allergy/AdvReac Type Severity Reaction Status Date / Time latex Allergy Unverified 04/15/20 20:03 control pills AdvReac Mild Itching Uncoded 04/15/20 20:03 General Stated Complaint: DentalOral KATIE: 4 Review of Systems All systems reviewed & are unremarkable except as noted in HPI and below [facility] Medical History Anxiety (Chronic) Bipolar affective disorder (Acute) Opioid abuse (Acute) PTSD (post-traumatic stress disorder) (Acute) Social History Smoking/Tobacco Use Status: Current every day Tobacco Type: cigarettes Alcohol Intake: never Drug use: Daily Substance use type: marijuana Details: marijuana at HS Do you feel safe at home: Yes Do you feel safe in your relationship?: Yes Exam Narrative Exam Narrative: 1.Const: Well-nourished, Well-developed, appearing stated age 2.Eyes: PERRL, no conjunctival injection, and symmetrical lids. 3.ENT: Atraumatic external nose and ears. Moist MM. Neck: Symmetric, trachea midline, No thyromegaly. Nearly a dentulous, multiple well-healing well surgically managed postop tooth sites. No significant swelling, no signs of periapical abscess, no signs of oropharyngeal swelling or airway compromise whatsoever. 4.CVS: +S1/S2, No murmurs or gallops. Peripheral pulses 2+ and equal in all extremities. Brisk capillary refill in all extremities. 5.RESP: Unlabored respiratory effort. Clear to auscultation bilaterally. No wheezes rales or rhonchi 6.GI: Soft, Nontender/Nondistended, No hepatosplenomegaly. No guarding or rebound. 7.MSK: Normocephalic/Atraumatic, Extremities w/o deformity or ttp No cyanosis or clubbing, Normal movement of all extremities 8.Skin: Warm, Dry. No rashes or lesions. 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 Sensation grossly intact, no focal neurologic deficits. 10.Psych: (AAO) x3. Appropriate mood and affect Course Vital Signs Vital signs: Vital Signs Temperature 37 C 04/15/20 19:59 Pulse 85 04/15/20 19:59 Respiratory Rate 18 04/15/20 19:59 Blood Pressure 121/67 04/15/20 19:59 Pulse Oximetry 99 04/15/20 19:59 Temperature 37 C 04/15/20 19:59 Temperature Source Tympanic 04/15/20 19:59 Pulse 85 04/15/20 19:59 Respiratory Rate 18 04/15/20 19:59 Respiratory Effort 04/15/20 20:04 Blood Pressure 121/67 04/15/20 19:59 Blood Pressure Position Sitting 04/15/20 19:59 Pulse Oximetry 99 04/15/20 19:59 Oxygen Delivery Method Room Air 04/15/20 19:59 Oxygen Flow Rate 0 04/15/20 19:59 Pain Level 7 04/15/20 20:04
[2020-04-15 20:37] VITALS: BP 121/65; PULSE 82; RESP 18; TEMP 37; O2SAT 99
== END 2020-04-15 20:35 | disposition home or self-care (01) ==
PROVIDERS: Emergency Provider Student in an Organized Health Care Education/Training Program; PCP Nurse Practitioner Family
DX: R68.84 Jaw pain (principal); G89.18 Other acute postprocedural pain; F11.10 Opioid abuse, uncomplicated
CPT/HCPCS: 99283

== ENCOUNTER 2020-12-01 15:53 | Emergency (ER) | payer MEDICAID, SELFPAY ==
[2020-12-01 15:59] VITALS: BP 123/93; PULSE 112; RESP 18; TEMP 36.5; O2SAT 96
--- NOTE | 2020-12-01 16:00 | DI.CT_ITS ---
EXAM: CT HEAD CERVICAL SPINE WO CLINICAL HISTORY: Fall, R sided pain. TECHNIQUE: Imaging Protocol: Axial computed tomography images with coronal and sagittal reformatted images were created and reviewed COMPARISON: No exams were available for comparison FINDINGS: BRAIN: There are no skull fractures. Some mucosal thickening is noted in the maxillary sinuses not associat ed with fluid levels. There is also mucosal disease in the left sphenoid sinus. There is no evidence of intracranial hemorrhage, mass effect, or shift of midline structures. There are no extra-axial fluid collections. The ventricles are not enlarged or shifted and there is no blo od within the ventricular system nor within the basal cisterns. CERVICAL SPINE: There is no evidence of fracture nor listhesis. No significant prevertebral soft tissue swelling. N o facet malalignment evident. No significant osseous lesions evident. IMPRESSION: No acute intracranial findings on this noninfused CT scan of the brain.There is mucosal disease in th e maxillary and sphenoid sinuses. No evidence of cervical spine fracture, malalignment, nor acute compromise of the cervical spinal can al. RADIATION DOSE DELIVERED: 1,834.54mGy.cm Total DLP DATA REPOSITORY: All CT scans at this facility are submitted to the National Radiology Data Registry (NRDR) Dose Index Registry (DIR) with the [employer] (A[employer]). RADIATION OPTIMIZATION: All CT scans at this facility use at least one of these dose optimization te chniques: automated exposure control; mA and/or kV adjustment per patient size (includes targeted exa ms where dose is matched to clinical indication); or iterative reconstruction.
--- NOTE | 2020-12-01 16:09 | ED.GENADUL_ITS ---
Discharge Plan Disposition Patient Disposition: HOME Condition: Improving Discharge Details Chief Complaint: Orthopedic Clinical Impression: Right shoulder strain Primary Care Provider: Loli Mckeon ED Provider: Jose Rodarte Home Meds and New Rx's Prescriptions: No Action Mirena 20 mcg/24 hours (5 yrs) 52 mg Intrauterine Device INTRAUTERINE RF: 0 Discharge Instructions Instructions: Shoulder Sprain (ED) Additional Instructions: Sling as needed for comfort 2 to 4 days time. Continue ice 20 minutes at a time to reduce discomfort. You may use ibuprofen 600 mg every 6-8 hours alternating with Tylenol 650 mg every 4-6 hours as needed for pain. Return for difficulty breathing, development of abdominal pain, or any other acute concerns. Stand Alone Forms: Work Release Medical Decision Making 25-year-old female tripped and fell while walking her dogs, twisting as she fell landing on her right shoulder. Feels as if she was dazed, and states she may have lost consciousness. No vomiting. No change to vision. She has right shoulder pain and right neck pain. No difficulty breathing. She arrives with slight tachycardia and some mild distress. Given oral NSAID and referred for imaging. CT of the head and cervical spine without acute findings. Chest x-ray with no rib fractures or other acute findings. Right shoulder x-ray with no evidence of fracture or dislocation, AC joint appears unremarkable. Consistent with right AC/shoulder strain or sprain. Discussed use of sling as needed. We will hold her off work for 48 to 72 hours. She will continue ice and NSAIDs at home. Return precautions were discussed with the patient prior to discharge. HPI General Mode of arrival: ambulatory . Date/Time Provider Initiated Documentation: 12/01/20 15:54 . Limitations to Documentation: no limitations . Information obtained by: patient . History of Present Illness 25 year old F presents to the emergency department with the chief complaint of Fall, right- sided pain, described as moderate, Quality is described as dull and constant, and is localized to the head, neck, right and upper extremity. Patient reports no radiation. Patient started experiencing this minute(s) and it has been constant. No relieving factors improve symptom(s), No exacerbating factors reported . Patient notes denies shortness of breath and syncope. Related Data Home Medications Medication Instructions Recorded Confirmed Mirena INTRAUTERINE 05/15/19 Allergies Allergy/AdvReac Type Severity Reaction Status Date / Time latex Allergy Unverified 04/15/20 20:03 control pills AdvReac Mild Itching Uncoded 04/15/20 20:03 General Stated Complaint: Orthopedic KATIE: 3 Review of Systems Narrative: 6 systems reviewed and otherwise negative. No loss of conscious. No numbness or tingling, no motor weakness. No shortness of breath. Not . [facility] Medical History (Updated 12/01/20 @ 17:49 by Jose Rodarte MD) Anxiety Bipolar affective disorder Opioid abuse PTSD (post-traumatic stress disorder) Social History Smoking/Tobacco Use Status: Current every day Tobacco Type: cigarettes Smoking risk assessment performed?: Yes Alcohol Intake: never Drug use: Daily Substance use type: marijuana Details: marijuana at HS Do you feel safe at home: Yes Do you feel safe in your relationship?: Yes Exam Narrative Exam Narrative: GEN: awake, alert, oriented 3. Pleasant, well groomed, interactive. HEAD: Normocephalic, atraumatic ENT: Mucous membranes moist, oropharynx unremarkable, External ear exam unremarkable EYES: PERRL, EOMI NECK: Full ROM, right-sided paraspinous tenderness CHEST/RESP: Right posterior chest wall upper tenderness, clear to auscultation bilateral, no wheeze/rhonchi/rales CARDIOVASCULAR: RRR, no murmur, rub grzegorz. 2+ Rad pulse bilateral ABDOMEN: Soft, nontender, no mass. +Bowel sounds EXT: Right lateral shoulder tenderness, normal sensation throughout. Patient able to demonstrate normal distal motor function of radial, ulnar, median nerve. Neuro: Grossly normal neurologic exam, conversant, interactive. Psych: Speech fluent, thoughts congruent, affect normal Course Vital Signs Vital signs: Vital Signs Temperature 36.5 C 12/01/20 15:59 Pulse 112 H 12/01/20 15:59 Respiratory Rate 18 12/01/20 15:59 Blood Pressure 123/93 H 12/01/20 15:59 Pulse Oximetry 96 12/01/20 15:59 Temperature 36.5 C 12/01/20 15:59 Temperature Source Temporal Artery Scan 12/01/20 15:59 Pulse 112 H 12/01/20 15:59 Respiratory Rate 18 12/01/20 15:59 Blood Pressure 123/93 H 12/01/20 15:59 Blood Pressure Position Sitting 12/01/20 15:59 Pulse Oximetry 96 12/01/20 15:59 Oxygen Delivery Method Room Air 12/01/20 15:59 Oxygen Flow Rate 0 12/01/20 15:59 Pain Level 9 12/01/20 15:59 Comment 12/01/20 15:59
[2020-12-01] MEDS: Ibuprofen 600 MG TAB PO (16:32)
[2020-12-01] MEDS: Ondansetron O.D.T. 4 MG TABEF PO (16:33)
--- NOTE | 2020-12-01 17:28 | DI.RAD_ITS ---
EXAM: XR CHEST 2V PA LATERAL CLINICAL HISTORY: R pain after fall. TECHNIQUE: 2D digital imaging was performed. COMPARISON: CR,XR XR CHEST 2V PA LATERAL from 11/05/2019 FINDINGS: Heart size is normal. The mediastinum is not widened. Lungs are clear. No infiltrates nor pleural effusions. IMPRESSION: No acute pulmonary findings.No significant change from 11/05/2019 DATA REPOSITORY: RADIATION DOSE DELIVERED:
--- NOTE | 2020-12-01 17:29 | DI.RAD_ITS ---
EXAM: XR SHOULDER RT COMPLETE 2+V CLINICAL HISTORY: Fall, R lateral pain. TECHNIQUE: 2D digital imaging was performed. COMPARISON: No exams were available for comparison FINDINGS: There is no evidence of fracture or dislocation of the glenohumeral joint. AC joint appears unremark able. No abnormal soft tissue calcifications. Bone density is normal. IMPRESSION: No fracture or dislocation. Sign rib DATA REPOSITORY: RADIATION DOSE DELIVERED:
--- NOTE | 2020-12-01 17:31 | DI.VRAD_ITS ---
PROCEDURE INFORMATION: Exam: CT Head Without Contrast Exam date and time: 12/01/2020 5:05 PM Age: 25 years old Clinical indication: Injury or trauma; Fall; Blunt trauma (contusions or hematomas); Without loss of consciousness; Other: Head and neck pain; Concussion/head injury; Prior surgery TECHNIQUE: Imaging protocol: Computed tomography of the head without contrast. COMPARISON: No relevant prior studies available. FINDINGS: Brain: Normal. No hemorrhage. Unremarkable white matter. No mass effect. Cerebral ventricles: No ventriculomegaly. Bones/joints: Unremarkable. No acute fracture. Paranasal sinuses: There is fluid within the sinuses, consistent with sinusitis. Mastoid air cells: Visualized mastoid air cells are well aerated. Soft tissues: Unremarkable. IMPRESSION: Negative for acute intracranial pathology. PROCEDURE INFORMATION: Exam: CT Cervical Spine Without Contrast Exam date and time: 12/01/2020 5:05 PM Age: 25 years old Clinical indication: Injury or trauma; Fall; Blunt trauma (contusions or hematomas); Without loss of consciousness; Other: Head and neck pain; Concussion/head injury; Prior surgery TECHNIQUE: Imaging protocol: Computed tomography images of the cervical spine without contrast. COMPARISON: No relevant prior studies available. FINDINGS: Bones/joints: No acute fracture. Normal alignment. Discs/Spinal canal/Neural foramina: No significant disc protrusion. No severe spinal canal stenosis. No significant neural foraminal narrowing. Lungs: Lung apices are normal. Soft tissues: Unremarkable. IMPRESSION: No acute findings. Dictated and Authenticated by: Kush Whitney MD. Ordering:SRINIVASA Garcia MD
--- NOTE | 2020-12-01 17:43 | DI.VRAD_ITS ---
PROCEDURE INFORMATION: Exam: XR Right Shoulder Exam date and time: 12/01/2020 4:09 PM Age: 25 years old Clinical indication: Injury or trauma; Fall; Blunt trauma (contusions or hematomas); Shoulder; Right TECHNIQUE: Imaging protocol: XR Right shoulder. Views: 2 or more views. COMPARISON: No relevant images were readily available for comparison purposes. FINDINGS: Bones/joints: No acute fracture or dislocation. Soft tissues: Unremarkable. IMPRESSION: No acute fracture of dislocation. Dictated and Authenticated by: Dereck Carmona MD. Ordering:SRINIVASA Garcia MD
--- NOTE | 2020-12-01 17:51 | DI.VRAD_ITS ---
PROCEDURE INFORMATION: Exam: XR Chest Exam date and time: 12/01/2020 5:29 PM Age: 25 years old Clinical indication: Other: Pain post fall TECHNIQUE: Imaging protocol: XR of the chest Views: 2 views. COMPARISON: CR XR CHEST 2V PA LATERAL 11/05/2019 2:31 AM FINDINGS: Lungs: Unremarkable. No consolidation. Pleural spaces: Unremarkable. No pleural effusion. No pneumothorax. Heart/Mediastinum: Unremarkable. No cardiomegaly. Bones/joints: Unremarkable. IMPRESSION: No acute findings. Dictated and Authenticated by: Kush Whitney MD. Ordering:SRINIVASA Garcia MD
[2020-12-01 18:02] VITALS: BP 96/48; PULSE 81; RESP 18; O2SAT 97
== END 2020-12-01 18:06 | disposition home or self-care (01) ==
PROVIDERS: Emergency Provider Emergency Medicine; PCP Nurse Practitioner Family
DX: S46.911A Strain of unspecified muscle, fascia and tendon at shoulder and upper arm level, right arm, initial encounter (principal); M54.2 Cervicalgia; W01.0XXA Fall on same level from slipping, tripping and stumbling without subsequent striking against object, initial encounter
CPT/HCPCS: 99284; 70450; 71046; 72125; 73030

== ENCOUNTER 2020-12-28 18:23 | Outpatient (REF) | payer MEDICAID, SELFPAY ==
[2020-12-30 10:06] LABS: COVID-19 RT-PCR UVMMC Result Negative (Negative)
== END 2020-12-28 18:24 | disposition home or self-care (01) ==
LOC: NCHCN 18:23
PROVIDERS: PCP Nurse Practitioner Family; Visit Provider Family Medicine
DX: Z20.822 Contact with and (suspected) exposure to COVID-19 (principal); J06.9 Acute upper respiratory infection, unspecified
CPT/HCPCS: U0003

== ENCOUNTER 2021-01-05 17:38 | Outpatient (CLI) | payer MEDICAID, SELFPAY ==
--- NOTE | 2021-01-05 19:07 | DI.RAD_ITS ---
EXAM: XR CHEST 2V PA LATERAL CLINICAL HISTORY: BRONCHITIS, ACUTE WITH BRONCHOSPASM. TECHNIQUE: 2D digital imaging was performed. COMPARISON: CR,XR XR CHEST 2V PA LATERAL from 12/01/2020 FINDINGS: Heart size is normal. The mediastinum is not widened. Lungs are clear. No infiltrates nor pleural effusions. IMPRESSION: No acute pulmonary findings.No significant change compared to 12/01/2020 DATA REPOSITORY: RADIATION DOSE DELIVERED:
--- NOTE | 2021-01-05 19:31 | DI.VRAD_ITS ---
PROCEDURE INFORMATION: Exam: XR Chest Exam date and time: 01/05/2021 6:54 PM Age: 25 years old Clinical indication: Patient HX: Bronchitis, acute with bronchospasm TECHNIQUE: Imaging protocol: XR of the chest. Views: 2 views. COMPARISON: CR XR CHEST 2V PA LATERAL 12/01/2020 5:23 PM FINDINGS: Lungs: Unremarkable. No consolidation. Pleural spaces: Unremarkable. No pleural effusion. No pneumothorax. Heart/Mediastinum: Unremarkable. No cardiomegaly. Bones/joints: Unremarkable. IMPRESSION: No acute findings. Dictated and Authenticated by: Bradley Nugent MD. Ordering:MATTHIEU Shen MD
== END 2021-01-05 17:58 ==
PROVIDERS: PCP Nurse Practitioner Family; Visit Provider Physician Assistant Medical
DX: J20.9 Acute bronchitis, unspecified (principal)
CPT/HCPCS: 71046

== ENCOUNTER 2021-04-14 04:25 | Outpatient (CLI) | payer MEDICAID, SELFPAY ==
[2021-04-14 16:46] LABS: Abs Immature Grans 0.05 10^3/uL (0.0-0.06); Absolute Basophil Count 0.04 10^3/uL (0.0-0.2); Absolute Eosinophil Count 0.18 10^3/uL (0.0-0.7); Absolute Lymphocyte Count 3.47 10^3/uL (1.2-3.4); Basophils % 0.3; Eosinophils % 1.4; HCT 43.4 % (36.0-46.0); HGB 14.6 g/dL (11.2-15.7); Immature Grans % 0.4; Lymphocytes % 26.4; MCH 31.7 pg (27.0-33.0); MCHC 33.6 % (32.0-36.0); MCV 94.1 fL (80-95); MPV 11.1 fL (8.0-11.0); Monocytes % 4.9; Neutrophils % 66.6; Nucleated RBC 0 %; Platelet Count 242 10^3/uL (130-400); RBC 4.61 10^6/uL (3.93-5.22); RDW 12.3 % (11.7-14.6); RDW-SD 42.6 fL; WBC 13.16 10^3/uL (4.4-10.8)
[2021-04-14 16:47] LABS: Absolute Monocyte Count 0.64 10^3/uL (0.1-0.8); Absolute Neutrophil Count 8.76 10^3/uL (1.2-6.7)
[2021-04-14 17:00] LABS: Hemoglobin A1C 5.8 % (<5.7)
[2021-04-14 19:05] LABS: Vitamin D 25 Total 13.5 ng/mL (30-100)
[2021-04-14 19:21] LABS: ALT 70 U/L (14-59); AST 26 U/L (15-37); Albumin 4.7 g/dL (3.4-5.0); Alkaline Phosphatase 74 U/L (46-116); BUN 14 mg/dL (7-18); Bilirubin, Total 0.4 mg/dL (0.2-1.0); Calcium 9.6 mg/dL (8.5-10.1); Calculated LDL 134 mg/dL (<100); Chloride 102 mmol/L (98-107); Cholesterol 192 mg/dL (<200); Ferritin 88 ng/mL (8-252); Folate 16.6 ng/mL (8.6-20.0); Glucose 95 mg/dL (74-106); HDL Cholesterol 28 mg/dL (40-60); Magnesium 1.9 mg/dL (1.8-2.4); Potassium 3.8 mmol/L (3.5-5.1); Sodium 140 mmol/L (136-145); TSH 1.25 uIU/mL (0.36-3.74); Total Protein 8.2 g/dL (6.4-8.2); Triglyceride 151 mg/dL (<150); Vitamin B12 987 pg/mL (193-986)
[2021-04-14 19:46] LABS: C-Reactive Protein 0.33 mg/dL (0.0-0.3); FREE T4 0.92 ng/dL (0.76-1.46)
[2021-04-15 16:54] LABS: T3,Free 3.5 pg/mL (2.8-5.3)
== END 2021-04-14 04:26 | disposition home or self-care (01) ==
PROVIDERS: PCP Nurse Practitioner Family; Visit Provider Psychiatry & Neurology Psychiatry
DX: F33.1 Major depressive disorder, recurrent, moderate (principal); Z79.899 Other long term (current) drug therapy
CPT/HCPCS: 36415; 80053; 80061; 82306; 82607; 82728; 82746; 83036; 83735; 84439; 84443; 84481; 85025; 86140

== ENCOUNTER 2022-12-11 15:55 | Emergency (ER) | payer MEDICAID, SELFPAY ==
[2022-12-11 16:01] VITALS: BP 134/87; PULSE 114; TEMP 36; O2SAT 98
--- NOTE | 2022-12-11 16:48 | ED.GENADUL_ITS ---
Discharge Plan Disposition Patient Disposition: Home Condition: Good Discharge Details Clinical Impression: TMJ arthralgia Primary Care Provider: Loli Mckeon ED Provider: Laura England Home Meds and New Rx's Prescriptions: Continued Mirena 20 mcg/24 hours (5 yrs) 52 mg Intrauterine Device INTRAUTERINE Patient Comments: does not have modafinil 200 mg tablet 200 mg PO BID Patient Comments: TAKE ONE TABLET BY MOUTH EVERY MORNING AND ONE TABLET AT NOON paroxetine HCl 40 mg tablet 40 mg PO DAILY Patient Comments: TAKE ONE TABLET BY MOUTH EVERY DAY Discharge Instructions Instructions: Temporomandibular Disorder (ED) Additional Instructions: Your history and exam are concerning for you having some irritation and inflammation in your temporomandibular joint. We do the right thing with Tylen ol and ibuprofen. Please encourage hydration. Please follow-up with your primary care provider in 2 weeks for reevaluation. You may also try some exercises for the jaw such as gently biting down on 2 fingers, holding this for 30 seconds and relaxing. If you develop difficulty or pain with swallowing, fever/chills, increased pain or other new/worsening symptom please seek care urgently once again. Referrals: Loli Mckeon [Primary Care Provider] - Discharge Data Discharge Date/Time-TO BE ENTERED AT DEPARTURE: 12/11/22 18:02 Medical Decision Making Patient is a pleasant 27-year-old female presenting today with chief complaint of left-sided jaw pain. She reports this been intermittent but had maximal can be quite severe pain. Pain is primarily along the left side and can be limiting for her when pain is present. Currently pain is subsided. She has been using Tylenol and ibuprofen with good relief. She has not had pain like this before. Pain does not radiate. Patient is edentulous along the left lower area where the pain has been. She states that she had these removed a few years ago and has not had any complications since then. She denies any pain with swallowing. No difficulty breathing. Pain does not radiate into the neck. Denies any cough, cold, fevers chills. On exam, patient appears nontoxic. She is normal HEENT exam. Lungs are clear. No pain is elicited upon palpation. Interestingly, after I finished my physical exam the patient and I began chatting and she began to laugh and had a sudden onset of pain. Now, the pain is reproducible in the left TMJ. After this provocative movement, the patient does have some clicking sensation. It does not seem to be dislocated. Likely more inflammation. We did discuss exercise to help release this. I encouraged that she continue with the anti-inflammatories. Encourage hydration. We discussed further care of her TMJ. Encourage follow-up with primary care. All of her questions and concerns were addressed and she is agreement this plan. HPI General Date/Time Provider Initiated Documentation: 12/11/22 16:01 . Limitations to Documentation: no limitations . Information obtained by: patient and RN notes reviewed . History of Present Illness 27 year old F presents to the emergency department with the chief complaint of left sided jaw pain, described as mild (pain is intermittent, denies pain currently), and is localized to the face. Patient reports no radiation. Patient started experiencing this day(s) and it has been intermittent. Immobilization improves symptom(s), Movement worsens symptoms . Patient notes no other symptoms.. Patient did receive the following treatments prior to arrival, NSAID Related Data Home Medications Medication Instructions Recorded Confirmed levonorgestrel 21 mcg/24 hours (8 intrauterine 05/15/19 yrs) 52 mg intrauterine device (Mirena) modafinil 200 mg tablet 200 mg PO BID 12/11/22 12/11/22 paroxetine HCl 40 mg tablet 40 mg PO DAILY 12/11/22 12/11/22 Allergies Allergy/AdvReac Type Severity Reaction Status Date / Time latex Allergy Unverified 12/11/22 16:04 control pills AdvReac Mild Itching Uncoded 12/11/22 16:04 General Stated Complaint: GenMedical KATIE: 3 Review of Systems Constitutional Constitutional: Reports as per HPI, Reports fatigue (chronic, hx of narcolepsy), Denies headache(s) and Denies malaise Eyes Eyes: Reports as per HPI, Denies eye discharge and Denies irritation ENT Ears, Nose, Mouth, and Throat: Reports as per HPI, Denies change in voice, Denies headache(s), Denies hoarseness, Denies mouth lesions, Reports mouth pain (left sided jaw pain), Denies nasal trauma, Denies neck mass, Denies nose pain, Denies sinus pain, Denies sinus pressure, Denies sore throat, Denies throat swelling and Denies tongue swelling Cardiovascular Cardiovascular: Reports as per HPI, Denies chest pain and Denies dyspnea Respiratory Respiratory: Reports as per HPI and Denies dyspnea Integumentary/Breasts Skin/Breast: Reports as per HPI and Denies rash Neurologic Neurologic: Reports as per HPI and Denies headache(s) Endocrine Endocrine: Reports fatigue (chronic, hx of narcolepsy) Allergic/Immunologic Allergic/Immunologic: Denies throat swelling and Denies tongue swelling PFSH All Active Problems (Updated 12/11/22 @ 17:45 by JASMIN Johnson) Dizziness (Acute) History of anxiety (Acute) Generalized pain (Acute) Right shoulder strain (Acute) TMJ arthralgia (Acute) Medical History (Updated 12/11/22 @ 17:45 by JASMIN Johnson) Anxiety Bipolar affective disorder Opioid abuse PTSD (post-traumatic stress disorder) Social History Smoking/Tobacco Use Status: Current every day Tobacco Type: cigarettes Smoking risk assessment performed?: Yes Alcohol Intake: never Drug use: Daily Substance use type: marijuana Details: marijuana at HS Do you feel safe at home: Yes Do you feel safe in your relationship?: Yes Exam Const General: cooperative, healthy appearing, comfortable, no acute distress, well developed and well groomed Nutritional Appearance: average body habitus and well nourished Orientation: alert and awake [facility] Head: normal to inspection, normocephalic and atraumatic Ears: hearing grossly normal bilaterally, external ears normal and TM's normal bilaterally General nose exam: external nose normal and nares normal Face and sinus: normal facial exam, sinuses nontender and face symmetric Mouth: oral mucosae normal, lip normal, tongue normal, oropharynx normal and moist mucous membranes Teeth and gingiva: dentition normal Throat: posterior oropharynx normal, tonsils normal and uvula midline Eyes General: appearance normal, both eyes and all related structures Neck Neck: normal visual inspection, full ROM, no lymphadenopathy and no meningeal signs Resp Effort & Inspection: normal respiratory effort, able to speak in complete sentences and no respiratory distress Auscultation: clear to auscultation bilaterally, no rales, no rhonchi and no wheezes Cardio Rate: regular rate Rhythm: regular rhythm Heart Sounds: S1 normal and S2 normal Skin General skin exam: no rashes or lesions noted Neuro General: patient alert and patient awake Cognition: normal cognition Speech: speech normal Gait: normal gait Psych Appearance: grossly normal and well kempt Mental Status: mental status grossly normal Speech and Movement: speech and movement normal Course Vital Signs Vital signs: Vital Signs Temperature 36.0 C L 12/11/22 16:01 Pulse 114 H 12/11/22 16:01 Blood Pressure 134/87 12/11/22 16:01 Pulse Oximetry 98 12/11/22 16:01 Temperature 36.0 C L 12/11/22 16:01 Temperature Source Tympanic 12/11/22 16:01 Pulse 114 H 12/11/22 16:01 Respiratory Effort Normal, Non-Labored 12/11/22 16:06 Blood Pressure 134/87 12/11/22 16:01 Blood Pressure Position Sitting 12/11/22 16:01 Pulse Oximetry 98 12/11/22 16:01 Oxygen Delivery Method Room Air 12/11/22 16:01 Oxygen Flow Rate 0 12/11/22 16:01
--- NOTE | 2022-12-11 17:08 | NUR.NOTE ---
Nursing Note: Referral given to Care Management 1. Needs PCP/establish care/medication refill within 3 weeks. 2. To [facility] for referral.
[2022-12-11 17:58] VITALS: BP 146/103; PULSE 115; RESP 20; O2SAT 100
== END 2022-12-11 18:02 | disposition home or self-care (01) ==
PROVIDERS: Emergency Provider Physician Assistant; PCP Nurse Practitioner Family
DX: M26.622 Arthralgia of left temporomandibular joint (principal)
CPT/HCPCS: 99281; 99282

== ENCOUNTER 2023-01-06 17:51 | Emergency (ER) | payer MEDICAID, SELFPAY ==
[2023-01-06] VITALS (17 sets, daily range): BP systolic 32–158; BP diastolic 23–118; PULSE 64–128; RESP 12–26; TEMP 36.6; O2SAT 97–99
--- NOTE | 2023-01-06 17:45 | RT.EKG_ITS ---
APPROVED REPORT Exam: Resting ECG Reason for Exam: dizziness Patient Location: E HR:80 bpm ECG Measurements Heart Rate 80 AXIS MI 155 P 31 QRSd 97 QRS 50 QT 352 T 53 QTc 407 Conclusion Sinus rhythm...normal P axis, V-rate 60- 99. Sinus. Normal axis. No STEMI. I have reviewed and interpreted ECG and agree with software generated interpretation.
--- NOTE | 2023-01-06 18:16 | ED.GENADUL_ITS ---
Discharge Plan Disposition Patient Disposition: Home Condition: Stable Discharge Details Clinical Impression: Narcolepsy, Medication refill Primary Care Provider: Loli Mckeon ED Provider: Sylvia Marinelli Home Meds and New Rx's Prescriptions: Continued Mirena 20 mcg/24 hours (5 yrs) 52 mg Intrauterine Device INTRAUTERINE Patient Comments: Pt not taking. modafinil 200 mg tablet 200 mg PO BID Patient Comments: TAKE ONE TABLET BY MOUTH EVERY MORNING AND ONE TABLET AT NOON paroxetine HCl 40 mg tablet 40 mg PO DAILY Patient Comments: TAKE ONE TABLET BY MOUTH EVERY DAY Discharge Instructions Instructions: Narcolepsy (DC), Medicine Refill (ED) Additional Instructions: Your blood tests and EKG today are reassuring and show no evidence of acute concerning findings. You were given a dose of your modafinil here today. returns supervisor your prescriptions at your pharmacy tomorrow and take as directed. Follow-up with your primary care provider for reevaluation and for continued medication management. Return immediately to the emergency department if you develop any worsening or new concerning symptoms. Discharge Data Discharge Date/Time-TO BE ENTERED AT DEPARTURE: 01/06/23 19:21 Discharge Physician: Sylvia Marinelli Medical Decision Making 27-year-old female with a history of narcolepsy, anxiety and PTSD presents with a prolonged narcolepsy episode this evening with report of running out of her medications for narcolepsy 1 week ago. Heart rate 110s on arrival, now within normal limits. Remainder vitals within normal limits. Patient appears drowsy but she states this is her usual baseline. She has no focal deficits or meningeal signs to suggest CVA or meningitis. She denies any chest pain, shortness of breath, leg pain or swelling and has no other risk factors to suggest PE and she is now PERC negative. Urine obtained on arrival and negative. Urinalysis negative. Due to initial report of an unresponsive patient at home, screening labs were obtained on arrival. EKG noted a rate of 80, sinus, normal axis, no STEMI. Screening labs reviewed and notes a magnesium of 1.6, will replete. ALT 97, has been high in the past. Remainder of labs reassuring. Patient feels comfortable going home. She takes modafinil 200 mg twice daily so we will give her 200 mg for her evening dose now. She states her pharmacy called her today and notified her that her medications are ready for pickup. Advised to follow up with the primary care doctor for re-evaluation. Usual and customary return precautions given prior to discharge. Medical Records Medical records reviewed: Yes I reviewed the patient's medical records. Lab Data Lab results reviewed: Yes I reviewed the patient's lab results. Labs: Laboratory Tests Range/Units 01/06/23 01/06/23 01/06/23 18:08 18:20 18:20 WBC (4.4-10.8) 10^3/uL 12.30 H RBC (3.93-5.22) 10^6/uL 4.62 Hgb (11.2-15.7) g/dL 14.5 Hct (36.0-46.0) % 43.4 MCV (80-95) fL 94 MCH (27.0-33.0) pg 31.4 MCHC (32.0-36.0) % 33.4 RDW (11.7-14.6) % 12.7 Plt Count (130-400) 10^3/uL 206 MPV (8.0-11.0) fL 10.8 Immature Gran % 0.6 Neutrophils % 55.3 Lymphocytes % 35.9 Monocytes % 4.5 Eosinophils % 3.3 Basophils % 0.4 Nucleated RBC % (0.0-0.3) % 0.0 Absolute Neutrophils (1.2-6.7) 10^3/uL 6.80 H Absolute Lymphocytes (1.2-3.4) 10^3/uL 4.42 H Absolute Monocytes (0.1-0.8) 10^3/uL 0.55 Absolute Eosinophils (0.0-0.7) 10^3/uL 0.41 Absolute Basophils (0.0-0.2) 10^3/uL 0.05 Sodium (136-145) mmol/L 138 Potassium (3.5-5.1) mmol/L 3.4 L Chloride (98-107) mmol/L 103 Carbon Dioxide (21.0-32.0) mmol/L 28.2 Anion Gap (3-11) mmol/L 6.8 BUN (7-18) mg/dL 9 Creatinine (0.55-1.02) mg/dL 0.9 Est GFR (CKD-EPI 2020) (mL/min/1.73m2) 89.86 Glucose (74-106) mg/dL 111 H Calcium (8.5-10.1) mg/dL 9.7 Magnesium (1.8-2.4) mg/dL 1.6 L Total Bilirubin (0.2-1.0) mg/dL 0.2 AST (15-37) U/L 25 ALT (14-59) U/L 97 H Alkaline Phosphatase (46-116) U/L 74 Troponin I (<or=60) ng/L < 50 Total Protein (6.4-8.2) g/dL 7.7 Albumin (3.4-5.0) g/dL 4.0 Urine Color (Yellow) Yellow Urine Clarity (Clear) Clear Urine pH (5-8) 7.0 Ur Specific [place] (1.005-1.025) 1.025 Urine Protein (Negative) mg/dL Negative Urine Ketones (Negative) mg/dL Negative Urine Blood (Negative) Negative Urine Nitrite (Negative) Negative Urine Bilirubin (Negative) Negative Urine Urobilinogen (Up to 0.2) mg/dL 0.2 Ur Leukocyte Esterase (Negative) Negative Urine Glucose (Negative) mg/dL Negative ECG Data Attestation: I personally reviewed and interpreted this ECG (s) as follows: Interpretation: Rate of 80, sinus, normal axis, no STEMI. HPI General Mode of arrival: EMS . Date/Time Provider Initiated Documentation: 01/06/23 18:38 . Limitations to Documentation: no limitations . Information obtained by: patient . HPI Narrative: Patient is a 27-year-old female with a history of narcolepsy, anxiety and PTSD who presents to the ED with complaint of prolonged narcolepsy episode tonight at home. Patient states she ran out of her modafinil and paroxetine for her narcolepsy 1 week ago. She states she was diagnosed with narcolepsy 4 years ago and started taking modafinil 1 year ago. She states tonight she was sitting at home for dinner and felt like she was going into one of her episodes and told her . She states she usually is able to pull herself out of her episode with moving her fingers and toes within a few minutes but states she was unable to wake up before 18 minutes. 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 She states after she awoke she felt tired but now she feels that her usual baseline. She denies any recent fever, headache, blurry vision, neck pain, chest pain, difficulty breathing, abdominal pain, nausea, vomiting, diarrhea or urinary symptoms. She denies any leg swelling, leg pain, recent surgery or recent travel. She states prior to starting her paroxetine and modafinil for her narcolepsy she was having daily episodes. She states since having these medications she has not had any episodes. She states she smokes marijuana daily but denies any other drug or alcohol use. She denies any other new medications. Related Data Home Medications Medication Instructions Recorded Confirmed levonorgestrel 21 mcg/24 hours (8 intrauterine 05/15/19 yrs) 52 mg intrauterine device (Mirena) modafinil 200 mg tablet 200 mg PO BID 12/11/22 01/06/23 paroxetine HCl 40 mg tablet 40 mg PO DAILY 12/11/22 01/06/23 Allergies Allergy/AdvReac Type Severity Reaction Status Date / Time orange (food color) Allergy Intermediate Hives Unverified 01/06/23 17:52 latex Allergy Unverified 12/11/22 16:04 control pills AdvReac Mild Itching Uncoded 12/11/22 16:04 General Stated Complaint: Dizzy/Sync KATIE: 3 Review of Systems All systems reviewed & are unremarkable except as noted in HPI and below Constitutional Constitutional: Reports as per HPI, Denies chills and Denies fever(s) Eyes Eyes: Denies blurry vision ENT Ears, Nose, Mouth, and Throat: Denies dizziness, Denies sore throat and Denies throat swelling Cardiovascular Cardiovascular: Denies chest pain and Denies dyspnea Respiratory Respiratory: Denies cough and Denies dyspnea Gastrointestinal Gastrointestinal: Denies abdominal pain, Denies diarrhea and Denies vomiting Genitourinary Genitourinary: Denies hematuria and Denies dysuria Musculoskeletal Musculoskeletal: Denies back pain and Denies numbness Integumentary/Breasts Skin/Breast: Denies lesions and Denies rash Neurologic Neurologic: Denies dizziness, Denies localized weakness and Denies numbness Allergic/Immunologic Allergic/Immunologic: Denies throat swelling PFSH All Active Problems (Updated 01/11/23 @ 00:05 by ROXANNE CASTRO) Narcolepsy (Acute) Medication refill (Acute) Dizziness (Acute) History of anxiety (Acute) Generalized pain (Acute) Right shoulder strain (Acute) Medical History (Updated 01/11/23 @ 00:05 by ROXANNE CASTRO) Anxiety Bipolar affective disorder Opioid abuse PTSD (post-traumatic stress disorder) Surgical History (Updated 01/06/23 @ 18:40 by Sylvia Marinelli DO) H/O hand surgery Social History Smoking/Tobacco Use Status: Current every day Tobacco Type: cigarettes Smoking risk assessment performed?: Yes Alcohol Intake: current Alcohol Intake frequency: holidays/special occasions only Drug use: Daily Substance use type: marijuana Details: marijuana at HS Do you feel safe at home: Yes Do you feel safe in your relationship?: Yes Exam Const General: cooperative, healthy appearing and no acute distress Orientation: alert, awake and oriented x3 HENMT Head: normal to inspection Ears: hearing grossly normal bilaterally, external ears normal and TM's normal bilaterally General nose exam: external nose normal Face and sinus: normal facial exam Mouth: oral mucosae normal Throat: posterior oropharynx normal Eyes General: appearance normal, both eyes and all related structures Pupils: PERRL EOM: EOM intact bilaterally Neck Neck: normal visual inspection and No submandibular swelling Lymphatic: no lymphadenopathy noted Chest Chest: normal inspection of the chest and no tenderness Resp Effort & Inspection: normal respiratory effort and able to speak in complete sentences Auscultation: clear to auscultation bilaterally Cardio Rate: tachycardic Rhythm: regular rhythm GI Inspection: normal to inspection Palpation: soft, not firm, not rigid and nontender Auscultation: hypoactive bowel sounds Skin General skin exam: no rashes or lesions noted Neuro General: patient alert, patient awake, patient oriented x3, moves all extremities and no meningeal signs Cranial Nerves: CN's II-XI intact bilaterally Cognition: normal cognition Speech: speech normal Motor: muscle tone normal throughout and strength 5/5 throughout Sensory Exam: no sensory deficits noted Extrem General: normal to inspection, full ROM, capillary refill normal, no calf tenderness bilaterally and no edema Psych Appearance: grossly normal Mental Status: mental status grossly normal Speech and Movement: speech and movement normal Affect: normal affect Course Vital Signs Vital signs: Vital Signs Temperature 97.9 F 01/06/23 17:38 Pulse 111 H 01/06/23 17:38 Respiratory Rate 16 01/06/23 17:38 Blood Pressure 147/94 H 01/06/23 17:38 Pulse Oximetry 99 01/06/23 17:38 Temperature 97.9 F 01/06/23 17:38 Temperature Source Temporal Artery Scan 01/06/23 17:38 Pulse 111 H 01/06/23 17:38 Respiratory Rate 16 01/06/23 17:38 Respiratory Effort Normal, Non-Labored 01/06/23 17:47 Blood Pressure 147/94 H 01/06/23 17:38 Blood Pressure Position Supine 01/06/23 17:38 Pulse Oximetry 99 01/06/23 17:38 Oxygen Delivery Method Room Air 01/06/23 17:38 Oxygen Flow Rate 0 01/06/23 17:38 Lab/Test Results Lab/Test Results: POC- Test(urine) Negative PAWSS Have you Been Recently Intoxicated or Drunk Within the Last 30 days?: No Have you Ever Experienced Previous Episodes of Alcohol Withdrawal?: No Have you ever Experienced Withdrawal Seizures?: No Have you ever Experienced Delirium Tremens(DT)s?: No Have you ever undergone Alcohol Rehabilitation Treatment (i.e, inpt ot outpatient treatment programs)?: No Have you ever Experienced Blackouts?: No Have you ever Combined Alcohol with other Downers within the last 90 days?: No Have you ever Combined Alcohol with any other Substance of Abuse during the last 90 days?: No Positive Blood Alcohol level on Presentation? [PCS.BAL]: No Evidence of Increased Autonomic Activity (i.e. HR>120, tremor, sweating, agitation, nausea)?: No Result: 0
[2023-01-06 18:21] LABS: Bilirubin Negative (Negative); Blood Negative (Negative); Clarity Clear (Clear); Glucose Negative (Negative); Ketones Negative (Negative); Leukocyte Esterase Negative (Negative); Nitrite Negative (Negative); Specific Gravity 1.025 (1.005-1.025); Urobilinogen 0.2 mg/dL (Up to 0.2)
[2023-01-06 18:25] LABS: Abs Immature Grans 0.07 10^3/uL (0.0-0.06); Absolute Basophil Count 0.05 10^3/uL (0.0-0.2); Absolute Eosinophil Count 0.41 10^3/uL (0.0-0.7); Absolute Lymphocyte Count 4.42 10^3/uL (1.2-3.4); Absolute Monocyte Count 0.55 10^3/uL (0.1-0.8); Basophils % 0.4; Eosinophils % 3.3; HCT 43.4 % (36.0-46.0); HGB 14.5 g/dL (11.2-15.7); Immature Grans % 0.6; Lymphocytes % 35.9; MCH 31.4 pg (27.0-33.0); MCHC 33.4 % (32.0-36.0); MCV 94 fL (80-95); MPV 10.8 fL (8.0-11.0); Monocytes % 4.5; Neutrophils % 55.3; Platelet Count 206 10^3/uL (130-400); RBC 4.62 10^6/uL (3.93-5.22); RDW 12.7 % (11.7-14.6)
[2023-01-06] MEDS: Normal Saline 1,000 ML 1000 ML IV (18:29)
[2023-01-06 18:44] LABS: ALT 97 U/L (14-59); AST 25 U/L (15-37); Alkaline Phosphatase 74 U/L (46-116); Anion Gap 6.8 mmol/L (3-11); BUN 9 mg/dL (7-18); Bilirubin, Total 0.2 mg/dL (0.2-1.0); CO2 28.2 mmol/L (21.0-32.0); CREATININE 0.9 mg/dL (0.55-1.02); Calcium 9.7 mg/dL (8.5-10.1); Chloride 103 mmol/L (98-107); Estimated GFR 89.86 (mL/min/1.73m2); Glucose 111 mg/dL (74-106); Magnesium 1.6 mg/dL (1.8-2.4); Potassium 3.4 mmol/L (3.5-5.1); Sodium 138 mmol/L (136-145); Total Protein 7.7 g/dL (6.4-8.2); Troponin I < 50 ng/L (<or=60)
[2023-01-06] MEDS: Magnesium Oxide 400 MG TAB PO (19:18)
[2023-01-06] MEDS: Modafinil 100 MG TAB 200 MG PO (19:19)
== END 2023-01-06 19:21 | disposition home or self-care (01) ==
PROVIDERS: Emergency Provider Physician Assistant; PCP Nurse Practitioner Family
DX: G47.419 Narcolepsy without cataplexy (principal); R00.0 Tachycardia, unspecified; Z76.0 Encounter for issue of repeat prescription
CPT/HCPCS: 36415; 80053; 81025; 93005; 96360; 99284; 81003; 83735; 84484; 85025; 93010

== ENCOUNTER 2023-03-06 16:02 | Outpatient (REF) | payer MEDICAID, SELFPAY ==
[2023-03-06 19:04] LABS: HGB 13.8 g/dL (11.2-15.7); MCH 31.9 pg (27.0-33.0); MCHC 33.7 % (32.0-36.0); MCV 95 fL (80-95); MPV 11.3 fL (8.0-11.0); Platelet Count 241 10^3/uL (130-400); RBC 4.33 10^6/uL (3.93-5.22); RDW 12.6 % (11.7-14.6); RDW-SD 43.8 fL
[2023-03-06 19:28] LABS: Hemoglobin A1C 6.3 % (<5.7)
[2023-03-06 19:39] LABS: ALT 68 U/L (14-59); AST 35 U/L (15-37); Albumin 4.2 g/dL (3.4-5.0); Alkaline Phosphatase 73 U/L (46-116); BUN 10 mg/dL (7-18); Bilirubin, Total 0.4 mg/dL (0.2-1.0); CREATININE 0.9 mg/dL (0.55-1.02); Calcium 9.1 mg/dL (8.5-10.1); Chloride 104 mmol/L (98-107); Estimated GFR 89.86 (mL/min/1.73m2); Glucose 96 mg/dL (74-106); HCG Quant, Pregnancy 1 mIU/mL (1-3); Potassium 3.7 mmol/L (3.5-5.1); Sodium 139 mmol/L (136-145)
== END 2023-03-06 16:03 | disposition home or self-care (01) ==
LOC: NCHCN 16:02
PROVIDERS: PCP Nurse Practitioner Family; Visit Provider Nurse Practitioner Family
DX: N91.2 Amenorrhea, unspecified (principal); G47.00 Insomnia, unspecified; R73.03 Prediabetes; G47.411 Narcolepsy with cataplexy; F31.30 Bipolar disorder, current episode depressed, mild or moderate severity, unspecified; D50.9 Iron deficiency anemia, unspecified
CPT/HCPCS: 80053; 85027; 83036; 84443; 84702

== ENCOUNTER 2024-01-09 11:26 | Outpatient (REF) | payer MEDICAID, SELFPAY ==
[2024-01-09 15:17] LABS: Abs Immature Grans 0.04 10^3/uL (0.0-0.06); Absolute Basophil Count 0.07 10^3/uL (0.0-0.2); Absolute Eosinophil Count 0.49 10^3/uL (0.0-0.7); Absolute Lymphocyte Count 3.73 10^3/uL (1.2-3.4); Absolute Monocyte Count 0.45 10^3/uL (0.1-0.8); Absolute Neutrophil Count 6.13 10^3/uL (1.2-6.7); Basophils % 0.6; Eosinophils % 4.5; HCT 44.4 % (36.0-46.0); HGB 14.5 g/dL (11.2-15.7); Immature Grans % 0.4; Lymphocytes % 34.2; MCH 31.5 pg (27.0-33.0); MCHC 32.7 % (32.0-36.0); MCV 96 fL (80-95); MPV 11.5 fL (8.0-11.0); Monocytes % 4.1; Neutrophils % 56.2; Platelet Count 226 10^3/uL (130-400); RBC 4.61 10^6/uL (3.93-5.22); RDW 12.5 % (11.7-14.6); RDW-SD 43.8 fL; WBC 10.91 10^3/uL (4.4-10.8)
[2024-01-09 15:38] LABS: ALT 63 U/L (14-59); AST 24 U/L (15-37); Albumin 4.6 g/dL (3.4-5.0); Alkaline Phosphatase 84 U/L (46-116); Anion Gap 12.1 mmol/L (3-11); BUN 12 mg/dL (7-18); Bilirubin, Total 0.3 mg/dL (0.2-1.0); CO2 24.9 mmol/L (21.0-32.0); Calcium 9.4 mg/dL (8.5-10.1); Chloride 102 mmol/L (98-107); FREE T4 0.87 ng/dL (0.76-1.46); Ferritin 124 ng/mL (8-252); Glucose 167 mg/dL (74-106); Potassium 4.2 mmol/L (3.5-5.1); Sodium 139 mmol/L (136-145); TSH 1.59 uIU/Ml (0.36-3.74); Total Protein 8.5 g/dL (6.4-8.2)
[2024-01-09 15:59] LABS: Hemoglobin A1C 6.9 % (<5.7)
[2024-01-10 18:54] LABS: Iron 88 ug/dL (50-170); Total Iron Binding Capacity 363 ug/dL (250-450); Transferrin Sat 24 % (15-50)
== END 2024-01-09 11:27 | disposition home or self-care (01) ==
LOC: NCHCN 11:26
PROVIDERS: Visit Provider Nurse Practitioner Family
DX: G47.411 Narcolepsy with cataplexy (principal); R73.03 Prediabetes; D50.9 Iron deficiency anemia, unspecified
CPT/HCPCS: 80053; 82728; 83036; 83540; 83550; 84439; 84443; 85025

== ENCOUNTER 2025-04-01 10:27 | Outpatient (REF) | payer MEDICAID, SELFPAY ==
[2025-04-01 18:27] LABS: Iron 49 ug/dL (50-170); Total Iron Binding Capacity 297 ug/dL (250-450); Transferrin Sat 16 % (15-50)
[2025-04-02 00:11] LABS: Ferritin 135 ng/mL (8-252); TSH (W/Ref FT4) 1.27 uIU/mL (0.36-3.74)
[2025-04-02 19:10] LABS: FSH 6.1 mIU/mL (See Note)
== END 2025-04-01 10:28 | disposition home or self-care (01) ==
LOC: NCHCN 10:27
PROVIDERS: Visit Provider Physician Assistant
DX: N93.9 Abnormal uterine and vaginal bleeding, unspecified (principal)
CPT/HCPCS: 82728; 83001; 83540; 83550; 84146; 84443